=== PATIENT | female | born 1995 | race Caucasian/White ===

== ENCOUNTER 2016-03-23 15:17 | Emergency (ER) | payer MEDICAID, OTHER ==
[~2016-03-23 15:17] MED LIST: SELEPAK PO
--- NOTE | 2016-03-23 16:15 | PD ---
HPI Chief Complaint pelvic cramping Date Seen: Mar 23, 2016 Time Seen: 15:40 (Arslan Gould MD R1) Travel History International Travel<30 Days: No Contact w/Intl Traveler<30Days: No Known Affected Area: No (Arslan Gould MD R1) History of Present Illness HPI 20 y/o female at 24/3 weeks presents with pelvic cramping. Started late last night. Denies contractions. Experienced [place] a couple weeks ago. Endorses movement. Denies vaginal bleeding, discharge, loss of fluid. Denies any other complaints/concerns. Is seen at [facility]. Denies headache, changes in vision, new extremity swelling, RUQ pain. Denies chest pain , SOB, dysuria, calf pain. History of with first . No problems in this current . Para: 1 : 3 : 1 (Arslan Gould MD R1) History Past Medical History Medical History: Denies Significant Hx (Arslan Gould MD R1) Obstetric History Obstetric History at 7 weeks with first . Living chid is healthy. Born at term. No complications (Arslan Gould MD R1) Past Surgical History Narrative Surgical Hip surgery (Arslan Gould MD R1) Family History Family History: Negative (Arslan Gould MD) Social History Narrative Social History Uses e-cig Denies alcohol use Denies drug use (Arslan Gould MD R1) Allergies-Medications (Allergen,Severity, Reaction): Coded Allergies: No Known Allergies (Verified , 03/17/16) Home Meds Active Scripts Mv & Min W/Fe Polysac (Select-Ob+Dha 29-1 & 250 mg)1 Shabbir Pak1 Tab PO DAILY #30 BOTTLE Ref 11 Prov:Neisha Goodwin 02/16/16 Mv & Min W/Fe Polysac (Select-Ob+Dha 29-1 & 250 mg)1 Shabbir Shabbir Sample # 2 Prov:Neisha Goodwin 02/16/16 Review of Systems General / Constitutional: Weight Gain, No: Fever, Chills Eyes: No: Blurred Vision, Visual changes HENT: No: Headaches, Lightheadedness Cardiovascular: No: Irregular Rhythm, Chest Pain or Discomfort, Palpitations, Tachycardia Respiratory: No: Cough, Short of Breath Gastrointestinal: No: Nausea, Vomiting, Diarrhea, Constipation Genitourinary: Pelvic Pain, No: Urgency, Frequency, Dysuria Musculoskeletal: Cramping, No: Weakness, Edema Skin: No Rash, No Itching Neurologic: No: Weakness, Dizziness, Syncope Psychiatric: No: Anxiety, Depression Endocrine: No: Heat Intolerance, Cold Intolerance Hematologic/Lymphatic: No Easy Bruising, No Lymph Node Enlargement (Arslan Gould MD R1) Physical Exam Narrative GENERAL: Well-nourished, well-developed patient. SKIN: Warm and dry. HEAD: Normocephalic and atraumatic. EYES: No scleral icterus. No injection or drainage. ENT: No nasal drainage noted. Mucous membranes pink. Airway patent. NECK: Supple, trachea midline. No JVD. CARDIOVASCULAR: Regular rate and rhythm without murmurs, gallops, or rubs. RESPIRATORY: Breath sounds equal bilaterally. No accessory muscle use. ABDOMEN/GI: Abdomen soft, non-tender, bowel sounds present, no rebound, no guarding Gravid to 24 weeks size Fundal Height: 24 FHT's: Category: 1 Baseline: 150 Reactive: yes Variability: moderate Decels: none EXTREMITIES: No cyanosis or edema. BACK: Nontender without obvious deformity. No CVA tenderness. NEUROLOGICAL: Awake and alert. Motor and sensory grossly within normal limits. Five out of 5 muscle strength in all muscle groups. Normal speech. (rAslan Gould MD R1) Data Data Vital Signs Reviewed: Yes Orders Vital Signs (Adult) .ON ADMISSION (03/23/16 15:52) Urinalysis - C+S If Indicated (03/23/16 15:52) (Arslan Gould MD R1) MDM Medical Record Reviewed: Yes Interpretation(s) 20 y/o at 24/3 weeks presents with pelvic cramping 1. Cramping pain - Check UA to rule out UTI - Monitor heart tracing - Continue to monitor vitals Narrative Course / MDM UA negative for UTI - Discharge home in stable condition - Follow-up with OB - Return if worsening pain or new symptoms (Asrlan Gould MD R1) Diagnosis Diagnosis: Primary Impression: Cramping affecting , antepartum Disposition: 01 DISCHARGE HOME Condition: Stable Attestation Patient seen and examined with the resident under direct supervision, I agree with the assessment and plan (Dani Kimbrough MD) Arslan Gould MD R1 Mar 23, 2016 16:14 Dani Kimbrough MD Mar 23, 2016 22:48
[2016-03-23 17:07] LABS: BACTERIA, URINE RARE /hpf; BLOOD, URINE NEG (NEG); COMMENT (UR) CULT NOT INDICATED; CULTURE IF INDICATED CULT NOT INDICATED; GLUCOSE,URINE NEG (NEG); KETONE, URINE NEG (NEG); NITRITE,URINE NEG (NEG); PH, URINE 7.5 (5.0-8.5); SQUAMOUS EPITHELIAL CELL URINE 4 /hpf (0-5); URINE COLOR LIGHT-YELLOW (YELLW/STRAW)
== END 2016-03-23 17:22 | disposition home or self-care (01) ==
LOC: HOBED 15:17
DX: O26.92 Pregnancy related conditions, unspecified, second trimester (principal); Z3A.24 24 weeks gestation of pregnancy
CPT/HCPCS: 81001; 99284

== ENCOUNTER 2016-06-20 15:18 | Emergency (ER) | payer MEDICAID ==
[~2016-06-20] VITALS: Ht 154.9 cm; Wt 70.5 kg
[2016-06-20 15:20] VITALS: BP 109/68; PULSE 108; RESP 16; TEMP 98.5; O2SAT 97
--- NOTE | 2016-06-20 16:06 | PD ---
HPI Chief Complaint: Cold / Flu Symptoms Time Seen by Provider: 16:00 Travel History International Travel<30 days: No Contact w/Intl Traveler<30days: No Traveled to known affect area: No History of Present Illness HPI 20-year-old female, 37 weeks , presents to the emergency Department with complaint of cough for the last 2-3 days and right lower wisdom tooth dental pain. Her main complaint is her tooth pain. Her mom told her to come in for evaluation because she thinks the right side of her face looked a little swollen and concern of infection. She denies fever, chills, nausea, vomiting. Denies nasal congestion, sore throat, ear pain. Denies chest pain, shortness of breath, wheezing. Denies abdominal cramping, vaginal bleeding. Reports normal activity. She has not taken any medications or tried any treatments to alleviate her symptoms. No known allergies. No other modifying factors or associated signs and symptoms. PFSH Past Medical History Musculoskeletal: Yes (LEG CALVES PERTHERS DISEASE) ?: LMP: 10/11/15 Social History Tobacco Use: No Allergies-Medications (Allergen,Severity, Reaction): Coded Allergies: No Known Allergies (Verified , 06/17/16) Reported Meds & Prescriptions Reported Meds & Active Scripts Active Amoxicillin 500 Mg Cap 500 Mg PO BID 10 Days Select-Ob+Dha 29-1 & 250 mg ( Mv & Min W/Fe Polysac) 1 Shabbir Shabbir 1 Tab PO DAILY Select-Ob+Dha 29-1 & 250 mg ( Mv & Min W/Fe Polysac) 1 Shabbir Shabbir Review of Systems Except as stated in HPI: all other systems reviewed are Neg Physical Exam Narrative GENERAL: Well-nourished, well-developed female patient, in no acute distress; SKIN: Warm and dry. No rash. HEAD: Atraumatic. Normocephalic. No facial edema, erythema and without tenderness on palpation. No lymphadenopathy. EYES: Pupils equal and round at 3 mm with brisk reaction. No scleral icterus. No injection or drainage. PERRLA. ENT: Mucosa pink and moist. No erythema or exudates. No uvular edema. No uvular , palatal, or tonsillar deviation. Airway patent. EARS: Bilateral pinnae and external canals appear within normal limits. Bilateral tympanic membranes without erythema, dullness or perforation. NECK: Trachea midline. No lymphadenopathy. MOUTH: Mucous membranes moist, no lesions, tongue and gums appear normal. Right lower wisdom tooth with dental caries and with tenderness on palpation; surrounding gingiva is without erythema, edema, drainage; no obvious abscess noted. CARDIOVASCULAR: Regular rate and rhythm. No murmur appreciated. RESPIRATORY: No accessory muscle use. Clear to auscultation. Breath sounds equal bilaterally. Occasional dry cough noted. GASTROINTESTINAL: ; rounded. MUSCULOSKELETAL: No obvious deformities. No clubbing. No cyanosis. No edema. NEUROLOGICAL: Awake and alert. Oriented 3. No obvious cranial nerve deficits. Motor grossly within normal limits. Normal speech. Moves all extremities. 5/5 strength to all extremities. PSYCHIATRIC: Appropriate mood and affect; insight and judgment normal. Data Data Last Documented VS Vital Signs Date Time Temp Pulse Resp B/P Pulse Ox O2 Delivery O2 Flow Rate FiO2 06/20/16 15:20 98.5 108 16 109/68 97 MDM Medical Decision Making Medical Screen Exam Complete: Yes Emergency Medical Condition: Yes Medical Record Reviewed: Yes Differential Diagnosis URI, sinusitis, viral illness, bronchitis, cough, dental abscess, toothache, infected dental caries Narrative Course 20-year-old female physical exam consistent with cough and dentalgia. She is 37 weeks . She denies abdominal cramping, abdominal pain, vaginal bleeding. Reports normal activity. Patient is afebrile and nontoxic- appearing. Her lungs are clear and equal throughout. She denies chest pain, shortness of breath, wheezing. Denies upper respiratory symptoms other than the cough. Heart rate on reexamination is approximately 90 bpm. Amoxicillin prescribed for home for dental pain. Instructed patient to follow up with dentist. Instructed patient to follow up with technical support technician. Patient verbalizes understanding and agreement with treatment plan. Patient is medically cleared and stable for discharge. Discussed reasons to return to the emergency department. Instructed patient to follow up with primary care provider. Patient agrees with treatment plan. The patients vital signs are stable and the patient is stable for outpatient follow-up and treatment. Patient discharged home, stable and in no acute distress. Diagnosis Primary Impression: Dentalgia Additional Impression: Cough Referrals: [facility] Primary Care Physician Patient Instructions: Acute Cough (ED), General Instructions Additional Instructions: Complete full course of antibiotics Tylenol as directed and as needed to reduce pain and inflammation Warm compresses to the affected area Follow-up with dentist Follow-up with primary care provider Follow-up with technical support technician Return to emergency department immediately with worsening of symptoms Med/Other Pt SpecificInfo: Prescription(s) given Scripts Amoxicillin 500 Mg [id number] Mg PO BID 10 Days Ref 0 Prov:Joann Zarate 06/20/16 Disposition: 01 DISCHARGE HOME Condition: Stable Joann Zarate Jun 20, 2016 16:06
[2016-06-20] MEDS ORDERED: AMOX500C PO (16:12)
== END 2016-06-20 16:31 | disposition home or self-care (01) ==
LOC: NEPK 15:18
DX: O99.89 Other specified diseases and conditions complicating pregnancy, childbirth and the puerperium (principal); K08.89 Other specified disorders of teeth and supporting structures; R05 Cough; Z3A.37 37 weeks gestation of pregnancy
CPT/HCPCS: 99282